=== PATIENT | female | born 1975 | race Caucasian/White ===

== ENCOUNTER 2020-10-23 09:46 | Emergency (ER) | payer BC ==
[~2020-10-23] VITALS: Ht 162.6 cm; Wt 77.1 kg
[2020-10-23 10:52] LABS: Basophils # (auto) 0.1 10 ^3/uL (0-0.2); Eosinophils # (auto) 0 10 ^3/uL (0-0.8); Hemoglobin 13.4 g/dL (12.2-16.2); Lymphocytes # (auto) 1.4 10 ^3/uL (0.4-5.4); Mean Corpuscular Hemoglobin 26.9 pg (28.0-32.0); Monocytes # (auto) 0.4 10 ^3/uL (0-1.3); Monocytes % (auto) 3.2 % (0.0-12.0); Nucleated Red Blood Cells % 0.1 %
[2020-10-23 10:54] LABS: Basophils % (auto) 0.4 % (0.0-2.0); Lymphocytes % (auto) 10.7 % (10.0-50.0); Mean Corpuscular Hgb Conc. 33.6 g/dL (32.0-36.0); Mean Corpuscular Volume 80.1 fL (80.0-100.0); Neutrophils # (auto) 11.5 10 ^3/uL (1.6-8.6); Neutrophils % (auto) 85.7 % (37.0-80.0); Platelet Count (auto) 354 10^3/uL (140-450); Red Cell Distribution Width 16.8 % (11.8-14.3); White Blood Cell 13.4 10^3/uL (4.4-10.8)
[2020-10-23] MEDS ORDERED: MORPHINE SULFATE 4 MG/ML SYR/VIAL IV ONE ×2 (11:00→13:45)
[2020-10-23] MEDS ORDERED: ONDANSETRON HCL 4 MG/2 ML VIAL IV ONE ×2 (11:00→13:45)
[2020-10-23] MEDS ORDERED: SODIUM CHLORIDE 0.9% 1,000 ML IV ONE ×2 (11:00)
[2020-10-23 12:59] LABS: Potassium 3.8 mmol/L (3.5-5.1)
[2020-10-23 13:06] LABS: BUN/Creatinine Ratio 10.6; Calcium 9.7 mg/dL (8.5-10.1)
[2020-10-23 13:09] LABS: Bilirubin, Total 0.4 mg/dL (0.2-1.0); Total Protein 7.5 g/dL (6.4-8.2)
[2020-10-23] MEDS ORDERED: metroNIDAZOLE 500MG/100ML 100 ML IV ONE (13:45)
[2020-10-23] MEDS ORDERED: cefTRIAXone 1GM/50ML D5W 50 ML IV ONE (13:45)
[2020-10-23 15:53] LABS: Lactic Acid w/Reflex 2.1 mmol/L (0.4-2.0)
[2020-10-23 18:38] VITALS: BP 142/87
== END 2020-10-23 20:31 | disposition home or self-care (01) ==
LOC: ER 09:46
DX: K52.89 Other specified noninfective gastroenteritis and colitis (principal); R73.9 Hyperglycemia, unspecified
CPT/HCPCS: 36415; 74176; 80053; 83605; 85025; 87040; 96365; 96368; 99284; J0696; J3490